=== PATIENT | female | born 1965 | race Caucasian/White ===

== ENCOUNTER 2019-07-25 13:12 | Inpatient (IN) ==
[2019-07-25] MEDS ORDERED: ONDANSETRON INJ 2 MG/ML 2 ML VIAL IV STA (13:33)
[2019-07-25] MEDS ORDERED: SODIUM CHLORIDE 0.9% 1000ML 1,000 ML IV ONE (13:33)
[2019-07-25] MEDS ORDERED: HYDROmorphone INJ 1 MG/ML SYRINGE IV STA (13:35)
[2019-07-25 13:53] LABS: Basophils # (auto) 0.03 K/uL (0-0.2); Basophils % (auto) 0.3 %; Eosinophils # (auto) 0.24 K/uL (0-0.5); Hematocrit (blood only) 39.1 % (37-47); Hemoglobin 14.1 g/dL (12.0-16.0); Immature Granulocytes # (auto) 0.02 K/uL (0.00-0.02); Immature Granulocytes % (auto) 0.2 %; Lymphocytes # (auto) 2.34 K/uL (1.2-3.4); Lymphocytes % (auto) 19.9 %; Mean Corpuscular Hgb Conc 36.1 g/dL (32-36); Mean Corpuscular Volume 98.5 fL (80-100); Mean Platelet Volume 9.8 fL (7.4-10.4); Monocytes % (auto) 7.7 %; Neutrophils # (auto) 8.23 K/uL (1.4-6.5); Neutrophils % (auto) 69.9 %; Platelet Count 195 K/uL (130-400); RDW Coefficient of Variation 11.9 % (11.5-14.5); RDW Standard Deviation 42.8 fL (36.4-46.3); Red Blood Count 3.97 M/uL (4.2-5.4); White Blood Count 11.76 K/uL (4.8-10.8)
[2019-07-25 14:01] LABS: Albumin Level 4.2 gm/dl (3.4-5.0); BUN Creatinine Ratio 10.8 (10-20); Calcium 10.3 mg/dl (8.5-10.1); Creatinine Clr Calc Pharmacy 69.3 ml/min; Est GFR (African American) 84.6; Potassium 3.6 mmol/L (3.5-5.1)
[2019-07-25 14:04] LABS: Bilirubin,Total 0.9 mg/dl (0.2-1); Globulin 4.2 gm/dl (2.5-4.0); Total Protein 8.4 gm/dl (6.4-8.2)
--- NOTE | 2019-07-25 14:32 | Emergency Department Note ---
Entered by Adina Solorzano acting as a scribe for Dhruv Balbuena MD History of Present Illness General Chief complaint: Abdominal Pain Stated complaint: ABDOMINAL PAIN, NAUSEA, BP 162-104,S/P HERNIA SURG Time Seen by Provider: 07/25/19 13:20 Source: patient Limitations: no limitations History of Present Illness Onset (ago): day(s) 1 Location: abdomen Pain Consistency: + constant and + other (worsening) Maximum Pain Intensity: 10 Quality: + other (worsening) Associated symptoms: + nausea/vomiting and + other (lower extremity swelling ); no chest pain and no fever/chills The patient is a 54 year old female who presents to the Emergency Room with complaints of constant post-surgical abdominal pain that worsened 1 day ago. She reports that she had a hernia mesh placement done 2 days ago, and she notes that the pain is over the incision site. The patient states that she was discharged a few hours after the surgery, noting that the pain was present at that time but she refused pain medication. The patient complains of nausea/vomiting and a bloated abdomen. She denies any fevers/chills, SOB, chest pain, and lower extremity swelling. The patient notes that she has not had a BM for at least the past 3 days. Home Medications Home Medications Medication Instructions Recorded Confirmed Type atorvastatin 20 mg tablet 20 mg PO QAM #90 tab 05/28/19 07/25/19 History hydroxyzine HCl 25 mg tablet 25 mg PO UD PRN #60 tab 05/28/19 07/25/19 History ipratropium 20 mcg-albuterol 100 1 puff INHALATION Q6H PRN gm 05/28/19 07/25/19 History mcg/actuation mist for inhalation lamotrigine 200 mg tablet 400 mg PO QAM tab 05/28/19 07/25/19 History trazodone 150 mg tablet 150 mg PO HS tab 05/28/19 07/25/19 History risperidone 4 mg tablet 4 mg PO HS 06/04/19 07/25/19 History fluticasone 100 mcg-salmeterol 50 1 puffs INH BID 07/01/19 07/25/19 History mcg/dose blistr powdr for inhalation lansoprazole 30 mg capsule,delayed 30 mg PO BID #180 cap 07/01/19 07/25/19 Rx release guaifenesin ER 1,200 mg tablet, 1,200 mg PO BID 07/07/19 07/25/19 History extended release 12 hr lactobacillus combination no.8 3 3,000 mmu cells PO QAM 07/07/19 07/25/19 History billion cell capsule multivitamin capsule 1 cap PO QAM 07/07/19 07/25/19 History sertraline 100 mg tablet 150 mg PO QAM tab 07/07/19 07/25/19 History acetaminophen-codeine 1 - 2 tab PO .every 4-6 hours PRN 07/23/19 07/25/19 Rx [Tylenol-Codeine #3] #30 tab Allergies Allergy/AdvReac Type Severity Reaction Status Date / Time fluconazole Allergy Severe hives Verified 07/25/19 14:44 diclofenac Allergy Patient Verified 07/25/19 14:44 denies buspirone AdvReac Mild loss of Verified 07/25/19 14:44 time fluoxetine AdvReac Mild loss of Verified 07/25/19 14:44 time morphine AdvReac Unknown N/V Verified 07/25/19 14:44 Past Med/Surg History Medical History Asthma stable Bipolar disorder COPD (chronic obstructive pulmonary disease) stable Degenerative disc disease Depression GERD (gastroesophageal reflux disease) controlled History of lung cancer s/p RUL lobectomy (2012) History of seizures Last seizure at age 18* Hyperlipidemia On home oxygen therapy 2L O2 HS (per patient, she states she was started on this after RUL lobectomy) Post traumatic stress disorder Pulmonary nodule Surgical History History of incisional hernia repair (07/23/19) Open Recurrent Incisional Hernia Repair with Mesh, Explant Portion of Prior Mesh, Enterolysis Dr. Black 07-23-19 History of D&C History of section X2 History of colonoscopy History of esophagogastroduodenoscopy (EGD) History of hysterectomy with unilateral oophorectomy History of incisional hernia repair History of lobectomy of lung RUL History of umbilical hernia repair X 2 Family History Mother Diabetes Hypertension Kidney disease Father Hypertension Cardiac disorder Myocardial infarction Brother Alcohol abuse Drug abuse Sister Breast cancer Ovarian cancer Depression Social History Preferred Language: Ugandan Communication Ability: Effective Visual Impairment: No Limitations Hearing Ability: Normal Brick Siding Applicator Required: No Beliefs That Will Affect Care: None marital status: Current Living Situation: Spouse current occupational status: unemployed Feels Safe at Home: Yes Smoking Status: Never smoker Tobacco Type: cigarettes ; Age Started Using Tobacco: 13 ; Age Quit Using Tobacco: 48 ; packs per day: 1 ; Second Hand Exposure: No ; Hx Alcohol Use: Yes Alcohol type: wine Alcohol Intake Frequency: Rarely Hx Substance Use: Yes substance use type: marijuana (inhalation daily; last use 07/10/19) Last Used Substance: Days (ago) Childhood Exposure to Second-Hand Smoke: Yes Dental Care, Regularly: No Physical Activity Frequency: 3-4 Times per Week Seatbelt Use: always Review of Systems See HPI for pertinent positives & negatives. and A total of 10 systems reviewed and were otherwise negative Physical Exam Vital Signs Vital Signs - 24 hr 07/25/19 13:14 07/25/19 13:48 Temperature 36.7 C Temperature Source Oral Sepsis Recent Fever Within 48 Hours No Sepsis New/Unexplained Change in Mental Status No Sepsis Action Taken by Nursing No Action Required Pulse Rate 129 H Respiratory Rate 20 Respiratory Effort / Characteristics Non-Labored Spontaneous Respiratory Depth Normal Blood Pressure 144/98 H Blood Pressure Mean 113 Pulse Oximetry 96 Oxygen Delivery Method Room Air GENERAL: Patient is in moderate distress from the pain. HEENT: No acute trauma, normocephalic atraumatic, mucous membranes moist, no nasal congestion, no scleral icterus. NECK: No stridor, no adenopathy, no meningismus, trachea is midline. LUNGS: Clear to auscultation bilaterally, no wheeze, no rhonchi, breath sounds equal. HEART: Tachycardic, regular rhythm. No murmurs. ABDOMEN: Fresh midline surgical incision. No drainage. Some surrounding erythema. Area is quite tender to touch. Abdomen is soft and bowel sounds are positive. Mild abdominal distention. EXTREMITIES: No cyanosis or edema, full range of motion of all the joints without pain or difficulty, no signs for acute trauma. NEUROLOGIC: Oriented x 3, no acute motor or sensory deficits, no focal weakness. SKIN: No rash, no jaundice, no diaphoresis. Course 1330: The patient was evaluated in room A03. A complete history and physical exam was performed. 1452: I spoke with Dr. Jo, general surgery, about the patients case. He will bring her into the hospital for symptom control and will consult the hospitalist. 1456: I updated the patient on the plan. Consultations Consultation #1: I spoke with Dr. Jo, general surgery, about the patients case. He will bring her into the hospital for symptom control and will consult the hospitalist. Time: 14:52 Administered Medications Hydromorphone HCl (Dilaudid) 1 mg IV Q15M PRN PRN Reason: Pain Stop: 08/08/19 14:38 Last Admin: 07/25/19 14:51 Dose: 1 mg Documented by: [id number] Ioversol (Optiray 320 100ml) 94 ml IV ONCE PRN PRN Reason: Interaction Checking Stop: 07/29/19 14:32 Last Admin: 07/25/19 14:33 Dose: 94 ml Documented by: [id number] Discontinued Medications Hydromorphone HCl (Dilaudid) 1 mg IV NOW STA Stop: 07/25/19 13:36 Last Admin: 07/25/19 13:47 Dose: 1 mg Documented by: [id number] Sodium Chloride (Nss 1000ml) 1,000 mls @ 999 mls/hr IV .Q1H1M ONE Stop: 07/25/19 14:33 Last Infusion: 07/25/19 14:31 Dose: 0 mls/hr Documented by: [id number] Admin: 07/25/19 13:30 Dose: 999 mls/hr Documented by: [id number] Piperacillin Sod/Tazobactam Sod (Zosyn) 4.5 gm in 120 mls @ 240 mls/hr IV NOW ONE Stop: 07/25/19 15:11 Last Admin: 07/25/19 14:51 Dose: 240 mls/hr Documented by: [id number] Ondansetron HCl (Zofran) 4 mg IV NOW STA Stop: 07/25/19 13:34 Last Admin: 07/25/19 13:47 Dose: 4 mg Documented by: [id number] Medical Decision Making Differential Diagnosis The differential diagnosis includes: Bowel obstruction, ileus, hematoma, bowel perforation, abscess, post-surgical pain, dehydration, constipation, pancreatitis, diverticulitis Medical Records Attestation: I reviewed the patient's medical records. Home Medications Current Medication List: was personally reviewed by hi Laboratory Data Attestation: I reviewed the patient's lab results. Result diagrams: 07/25/19 13:26 07/25/19 13:26 Lab Results 07/25/19 07/25/19 Range/Units 13:26 13:26 WBC 11.76 H (4.8-10.8) K/uL RBC 3.97 L (4.2-5.4) M/uL Hgb 14.1 (12.0-16.0) g/dL Hct 39.1 (37-47) % MCV 98.5 (80-100) fL MCH 35.5 H (25-34) pg MCHC 36.1 H (32-36) g/dL RDW Std Deviation 42.8 (36.4-46.3) fL RDW Coeff of Chelle 11.9 (11.5-14.5) % Plt Count 195 (130-400) K/uL MPV 9.8 (7.4-10.4) fL Immature Gran % (Auto) 0.2 % Neut % (Auto) 69.9 % Lymph % (Auto) 19.9 % [place] % (Auto) 7.7 % Eos % (Auto) 2.0 % Baso % (Auto) 0.3 % Immature Gran # (Auto) 0.02 (0.00-0.02) K/uL Neut # (Auto) 8.23 H (1.4-6.5) K/uL Lymph # (Auto) 2.34 (1.2-3.4) K/uL [place] # (Auto) 0.90 H (0.11-0.59) K/uL Eos # (Auto) 0.24 (0-0.5) K/uL Baso # (Auto) 0.03 (0-0.2) K/uL Sodium 138 (136-145) mmol/L Potassium 3.6 (3.5-5.1) mmol/L Chloride 99 (98-107) mmol/L Carbon Dioxide 31 (21-32) mmol/L Anion Gap 8.0 (3-11) BUN 10 (7-18) mg/dl Creatinine 0.90 (0.6-1.2) mg/dl Est Cr Clr Drug Dosing 69.3 ml/min Est GFR ( Amer) 84.6 Est GFR (Non-Af Amer) 73.0 BUN/Creatinine Ratio 10.8 (10-20) Glucose 169 H (70-99) mg/dl Calcium 10.3 H (8.5-10.1) mg/dl Total Bilirubin 0.9 (0.2-1) mg/dl AST 39 H (15-37) U/L ALT 42 (12-78) U/L Alkaline Phosphatase 104 (45-117) U/L Total Protein 8.4 H (6.4-8.2) gm/dl Albumin 4.2 (3.4-5.0) gm/dl Globulin 4.2 H (2.5-4.0) gm/dl Albumin/Globulin Ratio 1.0 (0.9-2) Lipase 188 (73-393) U/L Imaging Data Radiologist's Impression: Radiology results as stated below per my review and the radiologist's interpretation: CT abd pelvis IV con only CLINICAL HISTORY: Postoperative abdominal pain COMPARISON STUDY: September 2013 TECHNIQUE: The patient was scanned in a dynamic helical fashion during intravenous administration of 94 cc of Optiray 320. A dose lowering technique was utilized adhering to the principles of ALARA. CT DOSE: 543.01 mGy.cm FINDINGS: Lower chest: There are bilateral breast implants. There is mild subpleural reticulation particularly at the level of the right lung base. There is minimal enlargement in a 8.5 mm right lower lobe pulmonary nodule. The very slow growth favors a benign process Liver: The contrast-enhanced liver is normal in size, contour, and attenuation. There is no intrahepatic biliary ductal dilatation. The hepatic veins and portal veins are patent. Gallbladder: Mildly distended. No calculi identified Spleen: Normal in size and attenuation. Pancreas: Unremarkable. Adrenal glands: Unremarkable. Kidneys: There is a 12 mm left renal hypodensity, consistent with a cyst. There is a 1 cm right renal hypodensity consistent with a cyst. There is a 5 mm right renal hypodensity consistent with a cyst. There are no solid renal masses. There is no hydronephrosis. Bowel: There is a distended fluid-filled cecum which measures 8.8 cm in diameter. There are multiple colonic air-fluid levels. No obstructing lesions are visualized. The findings favor a postoperative colonic ileus. Peritoneum: There is no intraperitoneal free air or abdominal ascites. Vasculature: The abdominal aorta is normal in course and caliber. Adenopathy: None. Pelvic viscera: The uterus is surgically absent. Skeletal structures: There is a periumbilical anterior abdominal wall air-fluid collection, likely surgical. It is not possible to determine the stability of this collection. This collection measures approximately 7 x 1.6 x 5.1 cm IMPRESSION: 1. 7 x 5.1 x 1.6 cm periumbilical anterior abdominal wall fluid collection. This is likely postsurgical. It is not possible to determine whether this collection is infected. Clinical correlation in this regard is advocated 2. Distended fluid-filled colon to the level of the splenic flexure. No mass is visualized at the transition level. The findings therefore favor a post surgical ileus. The cecum measures 8.8 cm in diameter 3. Normal appendix Electronically signed by: Stalin Moncada M.D. 07/25/2019 2:45 PM ECG Data Attestation: I personally reviewed and interpreted this ECG as follows: Indication: abdominal pain Rate (beats per minute): 111 Rhythm: sinus tachycardia Findings: + other (no dysrhythmia ); no PVC, no ST elevation and no acute ischemic change Blood Pressure Blood Pressure Findings: Elevated blood pressure Blood Pressure Disposition: further management by hospitalist [facility] Narrative There is a mild leukocytosis, this could be consistent with infection or just pain. No anemia. No significant electrolyte abnormality or kidney failure. No liver enzyme elevation. No pancreatitis. Urinalysis result is currently pending. Abdominal and pelvis CT shows a collection of fluid with some air in the area of her recent surgical site-this was possibly consistent with a hematoma or possibly infection. There was a postop ileus suspected. No free air noted, no true bowel obstruction. On exam, the patient did look uncomfortable and somewhat bloated. She was tender across the area of her surgical site. Patient received IV Dilaudid for pain. She was given IV Zofran for nausea, she received IV saline and IV Zosyn as empiric antibiotic coverage. Patient does feel improved. Her case was discussed with surgery on-call. Hospitalization for symptom control was felt warranted. She does have a postop ileus. I did speak with case management. The patient is aware of all her findings. Impression & Plan Ileus, postoperative, Abdominal distension, Vomiting, Diffuse abdominal pain Discharge Plan Visit Data Chief Complaint: Abdominal Pain Stated Complaint: ABDOMINAL PAIN, NAUSEA, BP 162-104,S/P HERNIA SURG ED Provider: Dhruv Balbuena Discharge Problem: Ileus, postoperative, Abdominal distension, Vomiting, Diffuse abdominal pain Patient Disposition: Being Evaluated by Surgeon Forms Stand Alone Forms: Call Back Authorization, My [facility] Prescriptions Prescriptions: No Action lansoprazole 30 mg capsule,delayed release(DR/EC) 30 mg PO BID Qty: 180 RF: 1 Combivent Respimat 20-100 mcg/actuation mist 1 puff inhalation Q6H PRN (Reason: SOB) RF: 0 trazodone 150 mg tablet 150 mg PO HS RF: 0 lamotrigine 200 mg tablet 400 mg PO QAM RF: 0 atorvastatin 20 mg tablet 20 mg PO QAM Qty: 90 RF: 0 hydroxyzine HCl 25 mg tablet 25 mg PO UD PRN (Reason: Anxiety) Qty: 60 RF: 0 risperidone 4 mg tablet 4 mg PO HS RF: 0 sertraline 100 mg tablet 150 mg PO QAM RF: 0 fluticasone propion-salmeterol [Advair Diskus] 100-50 mcg/dose blister with device 1 puffs INH BID RF: 0 multivitamin capsule 1 cap PO QAM RF: 0 Adult Probiotic 3 billion cell capsule 3,000 mmu cells PO QAM RF: 0 guaifenesin [Mucinex] 1,200 mg tablet extended release 12hr 1,200 mg PO BID RF: 0 acetaminophen-codeine [Tylenol-Codeine #3] 300-30 mg tablet 1 - 2 tab PO .every 4-6 hours PRN (Reason: pain, for ongoing therapy) Qty: 30 RF: 0 Referrals Referrals: Meryl Dawkins MD [Primary Care Provider] - Discharge Problem: Vomiting Qualifiers: Vomiting type: unspecified Vomiting Intractability: unspecified Nausea presence: unspecified Qualified Code(s): R11.10 - Vomiting, unspecified The scribe's documentation has been prepared under my direction and personally reviewed by me in its entirety. I confirm that the note above accurately reflects all work, treatment, procedures, and medical decision making performed by me.
[2019-07-25] MEDS ORDERED: IOVERSOL 100ml IV PRN (14:33)
[2019-07-25] MEDS ORDERED: HYDROmorphone INJ 1 MG/ML SYRINGE IV PRN (14:39)
[2019-07-25] MEDS ORDERED: PIPERACILL/TAZOBAC CONSULT ACTIVE PRN (14:42)
[2019-07-25] MEDS ORDERED: PIPERACILLIN/TAZOBACTAM 4.5 GM/120 ML BAG IV ONE (14:42)
--- NOTE | 2019-07-25 14:46 | CT Scan Report ---
CT abd pelvis IV con only CLINICAL HISTORY: Postoperative abdominal pain COMPARISON STUDY: September 2013 TECHNIQUE: The patient was scanned in a dynamic helical fashion during intravenous administration of 94 cc of Optiray 320. A dose lowering technique was utilized adhering to the principles of ALARA. CT DOSE: 543.01 mGy.cm FINDINGS: Lower chest: There are bilateral breast implants. There is mild subpleural reticulation particularly at the level of the right lung base. There is minimal enlargement in a 8.5 mm right lower lobe pulmon sang nodule. The very slow growth favors a benign process Liver: The contrast-enhanced liver is normal in size, contour, and attenuation. There is no intrahepa tic biliary ductal dilatation. The hepatic veins and portal veins are patent. Gallbladder: Mildly distended. No calculi identified Spleen: Normal in size and attenuation. Pancreas: Unremarkable. Adrenal glands: Unremarkable. Kidneys: There is a 12 mm left renal hypodensity, consistent with a cyst. There is a 1 cm right renal hypodensity consistent with a cyst. There is a 5 mm right renal hypodensity consistent with a cyst. There are no solid renal masses. There is no hydronephrosis. Bowel: There is a distended fluid-filled cecum which measures 8.8 cm in diameter. There are multiple colonic air-fluid levels. No obstructing lesions are visualized. The findings favor a postoperative c olonic ileus. Peritoneum: There is no intraperitoneal free air or abdominal ascites. Vasculature: The abdominal aorta is normal in course and caliber. Adenopathy: None. Pelvic viscera: The uterus is surgically absent. Skeletal structures: There is a periumbilical anterior abdominal wall air-fluid collection, likely blackmon rgical. It is not possible to determine the stability of this collection. This collection measures ap proximately 7 x 1.6 x 5.1 cm IMPRESSION: 1. 7 x 5.1 x 1.6 cm periumbilical anterior abdominal wall fluid collection. This is likely postsurgic al. It is not possible to determine whether this collection is infected. Clinical correlation in this regard is advocated 2. Distended fluid-filled colon to the level of the splenic flexure. No mass is visualized at the tra nsition level. The findings therefore favor a post surgical ileus. The cecum measures 8.[address] 3. Normal appendix Electronically signed by: Stalin Moncada M.D. 07/25/2019 2:45 PM
--- NOTE | 2019-07-25 16:00 | History & Physical Report ---
Date of Service July 25, 2019 Assessment & Plan (1) Ileus, postoperative: It appears she has a postoperative ileus We will admit her to the hospital for bowel rest and IV fluid Have discussed with her the possibility of an NG tube which may help We will continue supportive care and I will ask the medical team To help us with her care History of Present Illness Primary Care Provider: Meryl Dawkins MD Patient presents the emergency room with nausea vomiting abdominal pain History of recent incisional hernia repair on 07/23/2019 with no bowel movement since that time She had a CAT scan which showed some mildly dilated small bowel and colon cecum is somewhat distended At 8 cm significant stool Her white blood cell count is 11.7, electrolytes relatively normal Allergies Allergy/AdvReac Type Severity Reaction Status Date / Time fluconazole Allergy Severe hives Verified 07/25/19 14:44 diclofenac Allergy Patient Verified 07/25/19 14:44 denies buspirone AdvReac Mild loss of Verified 07/25/19 14:44 time fluoxetine AdvReac Mild loss of Verified 07/25/19 14:44 time morphine AdvReac Unknown N/V Verified 07/25/19 14:44 Home Medications Home Medications Medication Instructions Recorded Confirmed Type atorvastatin 20 mg tablet 20 mg PO QAM #90 tab 05/28/19 07/25/19 History hydroxyzine HCl 25 mg tablet 25 mg PO UD PRN #60 tab 05/28/19 07/25/19 History ipratropium 20 mcg-albuterol 100 1 puff INHALATION Q6H PRN gm 05/28/19 07/25/19 History mcg/actuation mist for inhalation lamotrigine 200 mg tablet 400 mg PO QAM tab 05/28/19 07/25/19 History trazodone 150 mg tablet 150 mg PO HS tab 05/28/19 07/25/19 History risperidone 4 mg tablet 4 mg PO HS 06/04/19 07/25/19 History fluticasone 100 mcg-salmeterol 50 1 puffs INH BID 07/01/19 07/25/19 History mcg/dose blistr powdr for inhalation lansoprazole 30 mg capsule,delayed 30 mg PO BID #180 cap 07/01/19 07/25/19 Rx release guaifenesin ER 1,200 mg tablet, 1,200 mg PO BID 07/07/19 07/25/19 History extended release 12 hr lactobacillus combination no.8 3 3,000 mmu cells PO QAM 07/07/19 07/25/19 History billion cell capsule multivitamin capsule 1 cap PO QAM 07/07/19 07/25/19 History sertraline 100 mg tablet 150 mg PO QAM tab 07/07/19 07/25/19 History acetaminophen-codeine 1 - 2 tab PO .every 4-6 hours PRN 07/23/19 07/25/19 Rx [Tylenol-Codeine #3] #30 tab Past Med/Surg History Medical History Asthma stable Bipolar disorder COPD (chronic obstructive pulmonary disease) stable Degenerative disc disease Depression GERD (gastroesophageal reflux disease) controlled History of lung cancer s/p RUL lobectomy (2012) History of seizures Last seizure at age 18* Hyperlipidemia On home oxygen therapy 2L O2 HS (per patient, she states she was started on this after RUL lobectomy) Post traumatic stress disorder Pulmonary nodule Surgical History History of incisional hernia repair (07/23/19) Open Recurrent Incisional Hernia Repair with Mesh, Explant Portion of Prior Mesh, Enterolysis Dr. Black 07-23-19 History of D&C History of section X2 History of colonoscopy History of esophagogastroduodenoscopy (EGD) History of hysterectomy with unilateral oophorectomy History of incisional hernia repair History of lobectomy of lung RUL History of umbilical hernia repair X 2 Family History Mother Diabetes Hypertension Kidney disease Father Hypertension Cardiac disorder Myocardial infarction Brother Alcohol abuse Drug abuse Sister Breast cancer Ovarian cancer Depression Social History Preferred Language: Italian Communication Ability: Effective Visual Impairment: No Limitations Hearing Ability: Normal Self Sealing Fuel Tank Repairer Required: No Beliefs That Will Affect Care: None marital status: Current Living Situation: Spouse current occupational status: unemployed Feels Safe at Home: Yes Smoking Status: Never smoker Tobacco Type: cigarettes ; Age Started Using Tobacco: 13 ; Age Quit Using Tobacco: 48 ; packs per day: 1 ; Second Hand Exposure: No ; Hx Alcohol Use: Yes Alcohol type: wine Alcohol Intake Frequency: Rarely Hx Substance Use: Yes substance use type: marijuana (inhalation daily; last use 07/10/19) Last Used Substance: Days (ago) Childhood Exposure to Second-Hand Smoke: Yes Dental Care, Regularly: No Physical Activity Frequency: 3-4 Times per Week Seatbelt Use: always Review of Systems Review of Systems: All systems reviewed & are unremarkable except as noted in HPI & below Physical Exam Physical Exam: She is in her hospital bed in no distress he does appear ill Her mucous membranes are dry Her abdomen is mildly distended and some tenderness to palpation She has diminished bowel sounds Constitutional: well developed and well nourished; no acute distress Eyes: + anicteric sclerae Respiratory: normal respiratory effort; no respiratory distress Cardiovascular: Rate/Rhythm: regular rate Skin: no rashes, warm and dry Neurologic: awake Psychiatric: Orientation: alert Results & Data Vital Signs (Past 12 Hours) Vital Signs Temp Pulse Resp BP Pulse Ox 07/25/19 15:45 108 H 14 120/83 97 07/25/19 15:40 105 H 22 97 07/25/19 15:31 100 H 15 121/89 96 07/25/19 15:30 104 H 16 96 07/25/19 15:20 101 H 17 97 07/25/19 15:10 100 H 15 98 I did review her CAT scan 07/25/19 15:01 93 H 20 141/92 H 96 07/25/19 15:00 96 H 14 96 07/25/19 14:50 103 H 22 93 07/25/19 14:40 105 H 20 93 07/25/19 14:38 102 H 18 92 07/25/19 14:20 98 H 15 91 07/25/19 14:10 95 H 17 92 07/25/19 14:01 101 H 18 117/87 93 07/25/19 14:00 102 H 13 93 07/25/19 13:54 111 H 21 91 07/25/19 13:51 115 H 17 140/91 93 07/25/19 13:14 36.7 C 129 H 20 144/98 H 96 I did review her CAT scan Code Status & VTE Plan VTE Prophylaxis Plan VTE Prophylaxis will be ordered: Yes PG Care Time/CCT Total # of Minutes Spent Total Time Spent with Patient: Total time spent is greater than 50% in coordination of care (as documented) at patient's floor/unit and/or counseling patient:
[2019-07-25] MEDS ORDERED: ACETAMINOPHEN 1,000 MG/100 ML VIAL IV PRN (16:46)
[2019-07-25] MEDS ORDERED: PROMETHAZINE HCL 12.5 MG in SODIUM CHLORIDE 0.9% 50 ML IV PRN (16:46)
[2019-07-25] MEDS: HYDROmorphone INJ 1 MG/ML SYRINGE IV PRN ×3 (17:10→23:03)
[2019-07-25 17:15] LABS: Magnesium 1.8 mg/dl (1.8-2.4); Phosphorus 3.4 mg/dl (2.5-4.9)
[2019-07-25] MEDS: D5NSS + 20MEQ KCL 20 MEQ/1,000 ML BAG IV SCH (17:15)
--- NOTE | 2019-07-25 17:25 | Consultation ---
Date of Consultation July 25, 2019 Assessment & Plan (1) HTN, goal below 140/90: Keep blood pressure below 140/90 Your blood pressure is elevated above 160/90 give hydralazine 10 mg p.o. every 6 hours as needed Continue n.p.o. Dr. Jo said he is going to put NG tube Pain management Follow daily CBC CMP lipid panel A1c EKG pending Continue gentle IV fluid hydration DVT prophylaxis as per primary team/SCDs and teds since patient postsurgical Present on Admission?: Yes (2) Mixed hyperlipidemia: Lipid panel pending Continue atorvastatin 20 mg p.o. nightly (3) GERD without esophagitis: Continue lansoprazole 30 mg p.o. twice daily or equivalent Present on Admission?: Yes (4) COPD (chronic obstructive pulmonary disease): Continue supplemental oxygen at night/2 L since patient chronic chronically uses at home Keep oxygenation above 92% Continue her home inhalers ipratropium 20 MCG/albuterol 101 puff every 6 hours as needed Continue guaifenesin 1200 mg tablet extended release p.o. twice daily for cough Continue fluticasone 100 MCG/Solu-Medrol 50 MCG's for inhalation 1 puff twice daily Continue Tylenol 3 with codeine every 6 hours for pain management. Monitor ingestion of Tylenol and hold more than 2 g given during the day. (5) Anxiety: For depression with anxiety and bipolar affective disorder: Continue home dose of sertraline 150 mg tablet Continue trazodone 150 mg tablets p.o. nightly Continue risperidone 4 mg tablet p.o. nightly Continue lamotrigine 400 mg p.o. every morning Present on Admission?: Yes (6) Ileus, postoperative: As per primary team Present on Admission?: Yes History of Present Illness Requesting Physician: Dr. Erasmo Jo general surgery Reason for Consultation: Chronic COPD, hyperlipidemia, and hypertension Attending Physician: Jason Black, History of Present Illness Patient is a 54 years old female with past medical history of ventral hernia, mixed hyperlipidemia, hypertension, GERD, depression with anxiety, COPD who presents to the emergency room with a complaint of constant postsurgical abdominal pain that worsened 1 day ago. She reports that she had hernia mesh placement done 2 days ago and she noticed that pain is over the incision site. Patient states that even though she had pain after the surgery she refused to take pain medication. At this time she is complaining of nausea vomiting and distended abdomen. Patient denies fever chills chest pain shortness of breath frequency urgency melena dysuria hematuria. We are consulted for management patient's other comorbidities. Patient uses 2 L of oxygen at night. Patient is a cancer survivor and she had a lobectomy of her left lung. Patient also states that she did not have bowel movement for [address] of the abdomen pelvis is reviewed and showed mildly dilated small bowel and colon cecum is somewhat distended. There is 7 x 5.1 x 1.6 cm periumbilical anterior abdominal wall fluid collection. This is postsurgical. Distended fluid-filled colon to the level of the splenic flexure. No mass is visualized at the transitional level. The findings therefore favor postsurgical ileus. The cecum measures 8.8 cm in diameter. Normal appendix. Labs are reviewed: White blood cell count 11.76 hematocrit 39.1 hemoglobin 14.1 platelets 195. Sodium 138 potassium 3.8 chloride 99 anion gap 8 BUN 10 creatinine 0.9 GFR 73 glucose 169 calcium 10.3 AST 39 ALT 42 alkaline phosphatase 104 total protein 8.4 lipase 188. Allergies Allergy/AdvReac Type Severity Reaction Status Date / Time fluconazole Allergy Severe hives Verified 07/25/19 14:44 diclofenac Allergy Patient Verified 07/25/19 14:44 denies buspirone AdvReac Mild loss of Verified 07/25/19 14:44 time fluoxetine AdvReac Mild loss of Verified 07/25/19 14:44 time morphine AdvReac Unknown N/V Verified 07/25/19 14:44 Home Medications Home Medications Medication Instructions Recorded Confirmed Type atorvastatin 20 mg tablet 20 mg PO QAM #90 tab 05/28/19 07/25/19 History hydroxyzine HCl 25 mg tablet 25 mg PO UD PRN #60 tab 05/28/19 07/25/19 History ipratropium 20 mcg-albuterol 100 1 puff INHALATION Q6H PRN gm 05/28/19 07/25/19 History mcg/actuation mist for inhalation lamotrigine 200 mg tablet 400 mg PO QAM tab 05/28/19 07/25/19 History trazodone 150 mg tablet 150 mg PO HS tab 05/28/19 07/25/19 History risperidone 4 mg tablet 4 mg PO HS 06/04/19 07/25/19 History fluticasone 100 mcg-salmeterol 50 1 puffs INH BID 07/01/19 07/25/19 History mcg/dose blistr powdr for inhalation lansoprazole 30 mg capsule,delayed 30 mg PO BID #180 cap 07/01/19 07/25/19 Rx release guaifenesin ER 1,200 mg tablet, 1,200 mg PO BID 07/07/19 07/25/19 History extended release 12 hr lactobacillus combination no.8 3 3,000 mmu cells PO QAM 07/07/19 07/25/19 History billion cell capsule multivitamin capsule 1 cap PO QAM 07/07/19 07/25/19 History sertraline 100 mg tablet 150 mg PO QAM tab 07/07/19 07/25/19 History acetaminophen-codeine 1 - 2 tab PO .every 4-6 hours PRN 07/23/19 07/25/19 Rx [Tylenol-Codeine #3] #30 tab Patient History Medical History Asthma stable Bipolar disorder COPD (chronic obstructive pulmonary disease) stable Degenerative disc disease Depression GERD (gastroesophageal reflux disease) controlled History of lung cancer s/p RUL lobectomy (2012) History of seizures Last seizure at age 18* Hyperlipidemia On home oxygen therapy 2L O2 HS (per patient, she states she was started on this after RUL lobectomy) Post traumatic stress disorder Pulmonary nodule Surgical History History of incisional hernia repair (07/23/19) Open Recurrent Incisional Hernia Repair with Mesh, Explant Portion of Prior Mesh, Enterolysis Dr. Black 07-23-19 History of D&C History of section X2 History of colonoscopy History of esophagogastroduodenoscopy (EGD) History of hysterectomy with unilateral oophorectomy History of incisional hernia repair History of lobectomy of lung RUL History of umbilical hernia repair X 2 Family History Mother Diabetes Hypertension Kidney disease Father Hypertension Cardiac disorder Myocardial infarction Brother Alcohol abuse Drug abuse Sister Breast cancer Ovarian cancer Depression Social History Preferred Language: Danish Communication Ability: Effective Visual Impairment: No Limitations Hearing Ability: Normal [employer] Transactions Attorney Required: No Beliefs That Will Affect Care: None marital status: Current Living Situation: Spouse Current Living Situation Comment: spouse current occupational status: unemployed Feels Safe at Home: Yes Safety Concerns: Feels Safe At This Time Smoking Status: Former smoker Tobacco Type: cigarettes ; Age Started Using Tobacco: 13 ; Age Quit Using Tobacco: 48 ; packs per day: 1 ; Second Hand Exposure: No ; Hx Alcohol Use: Yes Alcohol type: hard liquor Alcohol Intake Frequency: Rarely Hx Substance Use: Yes substance use type: marijuana Last Used Substance: Days (ago) Last Used Substance Other:: 07-15-19 Childhood Exposure to Second-Hand Smoke: Yes Dental Care, Regularly: No Physical Activity Frequency: 3-4 Times per Week Seatbelt Use: always Review of Systems Review of Systems: All systems reviewed & are unremarkable except as noted in HPI & below Physical Exam Constitutional: WD/WN, vitals as above well developed Eyes: PERRL, conjunctivae normal, anicteric sclerae ENMT: external ear and nose normal, oropharynx normal Neck: trachea midline, no thyromegaly Respiratory: Auscultation: + diminished lung sounds (on the left) Cardiovascular: RRR, no murmur, no edema Chest (Breasts): normal inspection/palpation of breasts Gastrointestinal (Abdomen): normal bowel sounds, soft, nontender, no hepatosplenomegaly Inspection/Auscultation: + abdomen distended Percussion/Palpation: + abdomen tender and + guarding Bowel sounds diminished in all 4 quadrants Musculoskeletal: no cyanosis or clubbing, extremities motor strength 5/5 Skin: no rashes, warm and dry Neurologic: patellar DTR's 2+ bilat, sensation intact Psychiatric: A+Ox3, euthymic affect Lymphatic: no cervical or axillary lymphadenopathy Results & Data Vital Signs (Past 12 Hours) Vital Signs Temp Pulse Resp BP Pulse Ox 07/25/19 15:45 108 H 14 120/83 97 07/25/19 15:40 105 H 22 97 07/25/19 15:31 100 H 15 121/89 96 07/25/19 15:30 104 H 16 96 07/25/19 15:20 101 H 17 97 07/25/19 15:10 100 H 15 98 07/25/19 15:01 93 H 20 141/92 H 96 07/25/19 15:00 96 H 14 96 07/25/19 14:50 103 H 22 93 07/25/19 14:40 105 H 20 93 07/25/19 14:38 102 H 18 92 07/25/19 14:20 98 H 15 91 07/25/19 14:10 95 H 17 92 07/25/19 14:01 101 H 18 117/87 93 07/25/19 14:00 102 H 13 93 07/25/19 13:54 111 H 21 91 07/25/19 13:51 115 H 17 140/91 93 07/25/19 13:14 36.7 C 129 H 20 144/98 H 96 PG Care Time/CCT Total # of Minutes Spent Total Time Spent with Patient: Total time spent is greater than 50% in coordination of care (as documented) at patient's floor/unit and/or counseling patient:
[2019-07-25 17:53] LABS: Appearance Urine Turbid (Clear); Bacteria Urine Automated Negative (Negative); Bilirubin Urine Negative (Negative); Blood Urine Negative (Negative); Cast Urine Automated 0 /lpf (0-5); Color Urine Yellow; Glucose Urine UA Negative (Negative); Ketones Urine 1+ (Negative); Leukocyte Esterase Urine Negative (Negative); Nitrite Urine Negative (Negative); Protein Urine Negative (Negative); RBC Urine Automated 0-4 /hpf (0-4); Specific Gravity Urine > 1.045 (1.000-1.030); Urobilinogen Urine Negative (Negative); pH Urine 8.5 (4.5-7.5)
[2019-07-25] MEDS ORDERED: HydrALAZINE 10 MG TAB PO PRN (17:59)
[2019-07-25 18:35] LABS: Chol HDL Ratio 4; Cholesterol 217 mg/dl (0-200); HDL Cholesterol 55 mg/dl; LDL Cholesterol Calculated 114 mg/dl; Triglycerides 241 mg/dl (0-150); VLDL Cholesterol 48 mg/dl
[2019-07-25] MEDS: FLUTICASONE/SALMETEROL 100/50 (ADVAIR) 14 PUFF/1 INHALER INH SCH (20:53)
[2019-07-25] MEDS: HEPARIN SOD 5,000 UNIT/0.5 ML VIAL SQ SCH (20:53)
[2019-07-25] MEDS: TRAZODONE HCL 50 MG TAB PO SCH (20:53)
[2019-07-25] MEDS: IPRATROPIUM BROMIDE/ALBUTEROL respimat INH INH PRN (22:55)
[2019-07-25] MEDS: risperiDONE 2 MG TABLET PO SCH (22:55)
[2019-07-25] MEDS: CEFAZOLIN 1000MG 1,000 MG/7.5 ML SYR IV SCH (22:55)
[2019-07-25] MEDS: ONDANSETRON INJ 2 MG/ML 2 ML VIAL IV PRN (23:03)
[2019-07-26] MEDS: D5NSS + 20MEQ KCL 20 MEQ/1,000 ML BAG IV SCH ×3 (00:56→19:16)
[2019-07-26] MEDS: PROMETHAZINE HCL 25 MG in SODIUM CHLORIDE 0.9% 50 ML IV PRN (00:56)
[2019-07-26 06:10] LABS: Basophils # (auto) 0.01 K/uL (0-0.2); Basophils % (auto) 0.2 %; Eosinophils # (auto) 0.07 K/uL (0-0.5); Eosinophils % (auto) 1.1 %; Hematocrit (blood only) 35.3 % (37-47); Hemoglobin 11.9 g/dL (12.0-16.0); Immature Granulocytes # (auto) 0.01 K/uL (0.00-0.02); Immature Granulocytes % (auto) 0.2 %; Lymphocytes # (auto) 1.04 K/uL (1.2-3.4); Mean Corpuscular Hgb Conc 33.7 g/dL (32-36); Mean Corpuscular Volume 101.7 fL (80-100); Mean Platelet Volume 9.4 fL (7.4-10.4); Monocytes # (auto) 0.48 K/uL (0.11-0.59); Monocytes % (auto) 7.4 %; Neutrophils # (auto) 4.87 K/uL (1.4-6.5); Neutrophils % (auto) 75.1 %; Platelet Count 158 K/uL (130-400); RDW Coefficient of Variation 11.9 % (11.5-14.5); RDW Standard Deviation 43.9 fL (36.4-46.3); Red Blood Count 3.47 M/uL (4.2-5.4); White Blood Count 6.48 K/uL (4.8-10.8)
[2019-07-26] MEDS: CEFAZOLIN 1000MG 1,000 MG/7.5 ML SYR IV SCH ×3 (06:11→22:31)
[2019-07-26] MEDS: ONDANSETRON INJ 2 MG/ML 2 ML VIAL IV PRN ×3 (06:11→19:56)
[2019-07-26] MEDS ORDERED: MINERAL OIL 30 ML UDC PO ONE (06:47)
[2019-07-26 06:49] LABS: Albumin Level 3.4 gm/dl (3.4-5.0); BUN Creatinine Ratio 10.4 (10-20); Bilirubin,Total 0.4 mg/dl (0.2-1); Calcium 8.4 mg/dl (8.5-10.1); Creatinine Clr Calc Pharmacy 87.8 ml/min; Est GFR (African American) 112.7; Est GFR (Non-African American) 97.2; Globulin 3.5 gm/dl (2.5-4.0); Phosphorus 2.5 mg/dl (2.5-4.9); Total Protein 6.9 gm/dl (6.4-8.2)
--- NOTE | 2019-07-26 06:53 | Surgery Progress Note ---
Date of Service July 26, 2019 Assessment & Plan (1) Ileus, postoperative: has pain- slept overnight NG output looks like ice/water, and normal gastric secretions abd- decreased bs, less distended check KUB, add some mineral oil via NG and clamp may consider some Miralax if improved bs Results & Data Vital Signs (Past 12 Hours) Vital Signs Temp Pulse Resp BP Pulse Ox 07/26/19 01:44 96 H 07/26/19 00:00 36.9 C 117 H 16 151/83 H 96 PG Care Time/CCT Total # of Minutes Spent Total Time Spent with Patient: Total time spent is greater than 50% in coordination of care (as documented) at patient's floor/unit and/or counseling patient:
[2019-07-26] MEDS ORDERED: MINERAL OIL 473 ML BOTTLE PO ONE (07:00)
[2019-07-26] MEDS: FLUTICASONE/SALMETEROL 100/50 (ADVAIR) 14 PUFF/1 INHALER INH SCH ×2 (07:45→21:04)
[2019-07-26] MEDS: SERTRALINE HCL 100 MG TABLET PO SCH (07:45)
[2019-07-26] MEDS: PANTOprazole 40 MG TAB PO SCH (07:58)
[2019-07-26] MEDS: HYDROmorphone INJ 1 MG/ML SYRINGE IV PRN ×4 (08:00→19:56)
--- NOTE | 2019-07-26 09:05 | XRay Report ---
PA CHEST WITH ABDOMINAL SERIES CLINICAL HISTORY: Follow-up small bowel obstruction. FINDINGS: A PA chest radiograph is compared to study dated 09/25/2015 and correlated with chest CT dated 09/26/20 15. The cardiomediastinal silhouette is unremarkable. Emphysema and chronic interstitial thickening a re similar to previous. Postoperative change, volume loss, and trace pleural fluid is again seen at t he right lung base. The lungs are otherwise clear. No pneumothorax is seen. The skeletal structures a re osteopenic. The bony thorax is grossly intact. Supine and erect abdominal radiographs are correlated with abdominal CT dated 07/25/2019. An enteric tu be has been placed. The tip projects below the diaphragm over the gastric fundus. There is no radiogr aphic evidence of high-grade bowel obstruction. Gas is noted throughout the colon. Scattered air-flui d levels are noted on the upright view. No evidence of intraperitoneal free air is seen. There are no abnormal abdominal calcifications. The lumbosacral spine and bony pelvis appear intact. IMPRESSION: 1. Emphysema and postoperative change at the right lung base are similar to previous. 2. Trace pleural fluid is again seen in the right lung base. The lungs are otherwise clear. 3. An enteric tube has been placed as detailed above. 4. There is no radiographic evidence of high-grade bowel obstruction, with gas seen throughout the co miles. Scattered air-fluid levels are noted. When correlated with yesterday's CT scan this favors a pos toperative ileus. Electronically signed by: Dhruv Brown M.D. 07/26/2019 9:03 AM
[2019-07-26] MEDS: lamoTRIgine 100 MG TAB PO SCH (09:08)
[2019-07-26] MEDS: ATORVASTATIN 20 MG TAB PO SCH (09:08)
[2019-07-26] MEDS: guaiFENesin 600 MG TABCR PO SCH ×2 (09:09→21:06)
[2019-07-26] MEDS: HEPARIN SOD 5,000 UNIT/0.5 ML VIAL SQ SCH ×2 (09:11→22:36)
--- NOTE | 2019-07-26 10:36 | Hospitalist Progress Note ---
Date of Service July 26, 2019 Assessment & Plan (1) HTN, goal below 140/90: hydralazine 10 mg p.o. every 6 hours as needed for BP > 180/100 Continue n.p.o. NG per Dr. Jo Pain management Follow daily CBC CMP lipid panel A1c EKG pending Continue gentle IV fluid hydration DVT prophylaxis as per primary team/SCDs and teds since patient postsurgical (2) Mixed hyperlipidemia: Lipid panel pending Continue atorvastatin 20 mg p.o. nightly (3) GERD without esophagitis: Continue lansoprazole 30 mg p.o. twice daily or equivalent (4) COPD (chronic obstructive pulmonary disease): Continue supplemental oxygen at night/2 L since patient chronic chronically uses at home Keep oxygenation above 92% Continue her home inhalers ipratropium 20 MCG/albuterol 101 puff every 6 hours as needed Continue guaifenesin 1200 mg tablet extended release p.o. twice daily for cough Continue fluticasone 100 MCG/Solu-Medrol 50 MCG's for inhalation 1 puff twice daily Continue Tylenol 3 with codeine every 6 hours for pain management. (5) Anxiety: For depression with anxiety and bipolar affective disorder: Continue home dose of sertraline 150 mg tablet Continue trazodone 150 mg tablets p.o. nightly Continue risperidone 4 mg tablet p.o. nightly Continue lamotrigine 400 mg p.o. every morning (6) Ileus, postoperative: As per primary team (7) DVT prophylaxis: per primary Subjective Ms. Ribera continues to have abdominal pain. No nausea, tolerating NG tube. Not passing gas since yesterday, no BM. Review of Systems Review of Systems: All systems reviewed & are unremarkable except as noted in HPI & below Physical Exam Physical Exam: General: no distress Eyes: normal inspection, PERLL Respiratory: chest non tender, clear to auscultation, normal breath sounds, no respiratory distress, no accessory muscle use Cardiac: regular rate and rhythm, no rub or gallop, no murmur, no edema, no jvd GI/: active bowel sounds, no abd pain or tenderness, soft, distended Extremities: normal range of motion, normal strength, non tender Neuro/Psych: alert and oriented x 3, normal mood and affect Skin: normal color, dry, abd incision well approximated Results & Data Vital Signs (Past 12 Hours) Vital Signs Temp Pulse Resp BP Pulse Ox 07/26/19 07:34 37.4 C 93 H 16 147/80 H 94 07/26/19 01:44 96 H 07/26/19 00:00 36.9 C 117 H 16 151/83 H 96 PG Care Time/CCT Total # of Minutes Spent Total Time Spent with Patient: Total time spent is greater than 50% in coordination of care (as documented) at patient's floor/unit and/or counseling patient:
[2019-07-26] MEDS: IPRATROPIUM BROMIDE/ALBUTEROL respimat INH INH PRN (21:04)
[2019-07-26] MEDS: TRAZODONE HCL 50 MG TAB PO SCH (21:05)
[2019-07-26] MEDS: risperiDONE 2 MG TABLET PO SCH (21:07)
[2019-07-27] MEDS: HYDROmorphone INJ 1 MG/ML SYRINGE IV PRN ×4 (01:58→21:00)
[2019-07-27] MEDS: CEFAZOLIN 1000MG 1,000 MG/7.5 ML SYR IV SCH ×3 (05:31→22:02)
[2019-07-27] MEDS: D5NSS + 20MEQ KCL 20 MEQ/1,000 ML BAG IV SCH ×2 (05:31→15:17)
[2019-07-27] MEDS ORDERED: MINERAL OIL 30 ML UDC PO ONE ×2 (05:37→06:15)
[2019-07-27] MEDS ORDERED: SENNA 8.8 MG/5 ML UDP PO PRN (05:37)
[2019-07-27 06:06] LABS: Estimated Average Glucose 105 mg/dl; Hemoglobin A1C 5.3 % (4.5-5.6)
[2019-07-27 06:08] LABS: Albumin Level 3.3 gm/dl (3.4-5.0); BUN Creatinine Ratio 8.4 (10-20); Calcium 8.6 mg/dl (8.5-10.1); Creatinine Clr Calc Pharmacy 97.4 ml/min; Est GFR (African American) 118.1; Est GFR (Non-African American) 101.9; Magnesium 1.8 mg/dl (1.8-2.4); Potassium 3.9 mmol/L (3.5-5.1)
[2019-07-27 06:13] LABS: Bilirubin,Total 0.6 mg/dl (0.2-1); Globulin 3.4 gm/dl (2.5-4.0); Phosphorus 2.5 mg/dl (2.5-4.9); Total Protein 6.7 gm/dl (6.4-8.2)
[2019-07-27] MEDS ORDERED: MINERAL OIL 30 ML UDC NG ONE ×2 (06:15)
[2019-07-27] MEDS ORDERED: SENNA 8.8 MG/5 ML UDP NG PRN (06:15)
[2019-07-27] MEDS: lamoTRIgine 100 MG TAB PO SCH (08:53)
[2019-07-27] MEDS: SERTRALINE HCL 100 MG TABLET PO SCH (08:53)
[2019-07-27] MEDS: FLUTICASONE/SALMETEROL 100/50 (ADVAIR) 14 PUFF/1 INHALER INH SCH ×2 (08:53→21:00)
[2019-07-27] MEDS: ATORVASTATIN 20 MG TAB PO SCH (08:54)
[2019-07-27] MEDS: PANTOprazole 40 MG TAB PO SCH (08:54)
[2019-07-27] MEDS: guaiFENesin 600 MG TABCR PO SCH ×2 (08:54→21:00)
[2019-07-27] MEDS: HEPARIN SOD 5,000 UNIT/0.5 ML VIAL SQ SCH ×2 (08:54→21:04)
[2019-07-27 09:32] LABS: Hematocrit (blood only) 34.4 % (37-47); Hemoglobin 11.8 g/dL (12.0-16.0); Mean Corpuscular Hgb Conc 34.3 g/dL (32-36); Mean Platelet Volume 9.3 fL (7.4-10.4); Platelet Count 178 K/uL (130-400); RDW Coefficient of Variation 11.8 % (11.5-14.5); RDW Standard Deviation 42.3 fL (36.4-46.3); Red Blood Count 3.44 M/uL (4.2-5.4); White Blood Count 8.96 K/uL (4.8-10.8)
[2019-07-27] MEDS: ONDANSETRON INJ 2 MG/ML 2 ML VIAL IV PRN ×3 (09:53→20:03)
--- NOTE | 2019-07-27 12:34 | Surgery Progress Note ---
Date of Service July 27, 2019 Assessment & Plan (1) Ileus, postoperative: less NG output +flatus clamp NG, sips/ popsicles in am CT w/ contrast via NG- possible d/c Wed depending on progress Results & Data Vital Signs (Past 12 Hours) Vital Signs Temp Pulse Resp BP Pulse Ox 07/27/19 07:41 36.8 C 89 17 157/77 H 95 PG Care Time/CCT Total # of Minutes Spent Total Time Spent with Patient: Total time spent is greater than 50% in coordination of care (as documented) at patient's floor/unit and/or counseling patient:
--- NOTE | 2019-07-27 14:50 | Hospitalist Progress Note ---
Date of Service July 27, 2019 Assessment & Plan (1) Recurrent ventral hernia: - S/p repair on 07/23/19; primary management per surgery team. (2) Ileus, postoperative: - Most recent KUB on 07/26 showed post op ileus. Plan for CT A/P in the morning. - Management per primary team. Continue NG tube care. - NPO except meds; IV fluids at 100 cc/hr. (3) HTN, goal below 140/90: - Continue Hydralazine prn. Not on anti-hypertensive at home. - BP has been elevated, 140-150's. (4) Anxiety: - H/o depression,anxiety and bipolar affective disorder. - Continue Sertraline, Trazodone, Risperdal, Lamictal as prescribed. (5) Mixed hyperlipidemia: - Lipid panel showed elevated triglycerides and cholesterol. - Continue statin as prescribed. (6) GERD without esophagitis: - PPI. (7) COPD (chronic obstructive pulmonary disease): - Chronically uses 2L qhs at home; has been requiring 2L throughout the day as inpatient. - Continue Mucinex, Flonase, Advair. (8) DVT prophylaxis: - Heparin q12hr. Dispo: Will continue to follow, please call with any questions. Supervising Physician Co-Signing Physician Notes PA Supervision Note: I did not personally see or examine the patient today, but I verified all beltre points of GOLD Padron's assessment and plan with the following exceptions/additions: None Subjective Pt. is passing gas, has not had a BM yet. Has nausea, denies vomiting. NG tube in place with LIS. Will continue to follow. Review of Systems Review of Systems: All systems reviewed & are unremarkable except as noted in HPI & below Constitutional: no fever, no chills, no fatigue, no weakness and no anorexia Respiratory: no cough, no dyspnea and no dyspnea on exertion Cardiovascular: no chest pain, no palpitations and no edema Gastrointestinal: + nausea and + constipation; no abdominal pain, no vomiting and no diarrhea/loose stools Genitourinary: no difficulty urinating Musculoskeletal: no back pain and no joint pain Integumentary: no non-healing lesions Physical Exam Physical Exam: General: Resting comfortably HEENT: NC/AT; PERRLA with EOMI; [place] conjunctiva, MMM. No erythema of posterior pharynx Neck: Supple and nontender Cardiac: RRR Lungs: CTA bilaterally Abdomen: Bowel hypoactive x4; Nontender to palpation Extremities: Warm. No edema present Neuro: No focal weakness Skin: No rash Results & Data Vital Signs (Past 12 Hours) Vital Signs Temp Pulse Resp BP Pulse Ox 07/27/19 07:41 36.8 C 89 17 157/77 H 95 Laboratory Results 07/27/19 07/27/19 07/27/19 Range/Units 09:20 08:29 05:09 WBC 8.96 (4.8-10.8) K/uL RBC 3.44 L (4.2-5.4) M/uL Hgb 11.8 L (12.0-16.0) g/dL Hct 34.4 L (37-47) % MCV 100.0 (80-100) fL MCH 34.3 H (25-34) pg MCHC 34.3 (32-36) g/dL RDW Std Deviation 42.3 (36.4-46.3) fL RDW Coeff of Chelle 11.8 (11.5-14.5) % Plt Count 178 (130-400) K/uL MPV 9.3 (7.4-10.4) fL Sodium 142 (136-145) mmol/L Potassium 3.9 (3.5-5.1) mmol/L Chloride 104 (98-107) mmol/L Carbon Dioxide 34 H (21-32) mmol/L Anion Gap 4.0 (3-11) BUN 5 L (7-18) mg/dl Creatinine 0.64 (0.6-1.2) mg/dl Est Cr Clr Drug Dosing 97.4 ml/min Est GFR ( Amer) 118.1 Est GFR (Non-Af Amer) 101.9 BUN/Creatinine Ratio 8.4 L (10-20) Glucose 122 H (70-99) mg/dl POC Glucose 148 H (70-99) Estimat Average Glucose mg/dl Hemoglobin A1c (4.5-5.6) % Calcium 8.6 (8.5-10.1) mg/dl Phosphorus 2.5 (2.5-4.9) mg/dl Magnesium 1.8 (1.8-2.4) mg/dl Total Bilirubin 0.6 (0.2-1) mg/dl AST 22 (15-37) U/L ALT 25 (12-78) U/L Alkaline Phosphatase 72 (45-117) U/L Total Protein 6.7 (6.4-8.2) gm/dl Albumin 3.3 L (3.4-5.0) gm/dl Globulin 3.4 (2.5-4.0) gm/dl Albumin/Globulin Ratio 1.0 (0.9-2) 07/26/19 Range/Units 05:49 WBC (4.8-10.8) K/uL RBC (4.2-5.4) M/uL Hgb (12.0-16.0) g/dL Hct (37-47) % MCV (80-100) fL MCH (25-34) pg MCHC (32-36) g/dL RDW Std Deviation (36.4-46.3) fL RDW Coeff of Chelle (11.5-14.5) % Plt Count (130-400) K/uL MPV (7.4-10.4) fL Sodium (136-145) mmol/L Potassium (3.5-5.1) mmol/L Chloride (98-107) mmol/L Carbon Dioxide (21-32) mmol/L Anion Gap (3-11) BUN (7-18) mg/dl Creatinine (0.6-1.2) mg/dl Est Cr Clr Drug Dosing ml/min Est GFR ( Amer) Est GFR (Non-Af Amer) BUN/Creatinine Ratio (10-20) Glucose (70-99) mg/dl POC Glucose (70-99) Estimat Average Glucose 105 mg/dl Hemoglobin A1c 5.3 (4.5-5.6) % Calcium (8.5-10.1) mg/dl Phosphorus (2.5-4.9) mg/dl Magnesium (1.8-2.4) mg/dl Total Bilirubin (0.2-1) mg/dl AST (15-37) U/L ALT (12-78) U/L Alkaline Phosphatase (45-117) U/L Total Protein (6.4-8.2) gm/dl Albumin (3.4-5.0) gm/dl Globulin (2.5-4.0) gm/dl Albumin/Globulin Ratio (0.9-2) PG Care Time/CCT Total # of Minutes Spent Total Time Spent with Patient: Total time spent is greater than 50% in coordination of care (as documented) at patient's floor/unit and/or counseling patient:
[2019-07-27] MEDS: IPRATROPIUM BROMIDE/ALBUTEROL respimat INH INH PRN (17:50)
[2019-07-27] MEDS: HYDROmorphone INJ 0.5 MG/0.5 ML SYR IV PRN (17:57)
[2019-07-27] MEDS: TRAZODONE HCL 50 MG TAB PO SCH (21:00)
[2019-07-27] MEDS: risperiDONE 2 MG TABLET PO SCH (21:01)
[2019-07-28] MEDS: D5NSS + 20MEQ KCL 20 MEQ/1,000 ML BAG IV SCH ×3 (01:01→21:00)
[2019-07-28] MEDS: ONDANSETRON INJ 2 MG/ML 2 ML VIAL IV PRN ×3 (03:00→19:56)
[2019-07-28] MEDS: PROMETHAZINE HCL 25 MG in SODIUM CHLORIDE 0.9% 50 ML IV PRN (05:46)
[2019-07-28] MEDS: IPRATROPIUM BROMIDE/ALBUTEROL respimat INH INH PRN ×2 (05:46→17:12)
[2019-07-28] MEDS: CEFAZOLIN 1000MG 1,000 MG/7.5 ML SYR IV SCH ×3 (05:46→23:48)
[2019-07-28] MEDS ORDERED: HydrALAZINE HCL 20 MG/ML VIAL IV PRN (08:14)
[2019-07-28] MEDS ORDERED: IOVERSOL 100ml IV PRN (08:28)
--- NOTE | 2019-07-28 08:48 | CT Scan Report ---
CT abd pelvis oral and IV con CLINICAL HISTORY: 54 years-old Female presenting with ileus. TECHNIQUE: Multidetector CT of the abdomen and pelvis was performed after the administration of oral and intravenous contrast. IV contrast: 94 mL of Optiray 320. One or more dose lowering techniques wer e used consistent with the principles of ALARA (as low as reasonably achievable), including automatic exposure control, mA or kV adjustment to individual patient size, and/or use of iterative reconstruc tion. COMPARISON: 07/25/2019. CT DOSE (mGy.cm): The estimated cumulative dose is 705.57 mGycm. FINDINGS: [employer] topogram: Elevation of the right hemidiaphragm. Lung bases: Normal heart size. Trace right pleural thickening. No significant pleural effusion. Emphy sema. Subpleural reticulation at the right lung base. A suture margin is noted at the medial basal ri ght lower lobe. 9 mm solid peripheral nodule in the right lower lobe as on prior exam (series 3 image 9). This has been present since at least 2014. Liver: Normal morphology. No liver lesion. Patent hepatic vasculature. Biliary: No intrahepatic or extrahepatic biliary ductal dilatation. Normal gallbladder. Pancreas: Normal. Spleen: Normal. Adrenal glands: Normal. Kidneys and ureters: Several cysts noted. Otherwise normal parenchyma. No nephrolithiasis or hydronep hrosis. Subtle urothelial thickening is suggested. Ureters nondistended. Bladder: The configuration of the bladder suggests pelvic ligamentous laxity. Bladder otherwise verona l. Pelvic organs: Uterus surgically absent. Normal left ovary. Right ovary not visualized. Bowel: Oral contrast has transited to the sigmoid colon. No bowel obstruction. The appendix is normal . Nasogastric tube terminates in the gastric body. Possible circumferential thickening of the distal esophagus versus a small hiatal hernia. Peritoneal cavity: No free fluid or intraperitoneal gas. Lymph nodes: No enlarged lymph nodes in the abdomen or pelvis. Vasculature: Atherosclerosis of the normal caliber abdominal aorta. IVC patent. Abdominal wall: Bilateral breast implants again noted. The previous collection containing gas and flu id in the anterior abdominal wall now has a larger fluid component. This collection measures up to 10 .7 x 2.3 cm in maximal axial dimension, previously 7.7 x 1.4 cm. This does not appear to be in gross continuity with the peritoneal cavity. Laminar hyperdensity along the inferior margin may suggest ass ociated hernia repair. Overlying skin thickening in the infra umbilical region. Musculoskeletal: Normal. IMPRESSION: 1. Increased size of the gas and fluid containing collection in the subcutaneous tissue of the ventr al abdominal wall. Sterility cannot be confirmed. 2. No bowel obstruction or acute intra-abdominal pathology. No convincing evidence of ileus. 3. Appropriately positioned nasogastric tube. 4. Possible circumferential thickening of the distal esophagus versus a small hiatal hernia. 5. Emphysema. 6. Postsurgical and chronic changes of the right lung base. Electronically signed by: Larry Lisa M.D. 07/28/2019 8:46 AM
--- NOTE | 2019-07-28 09:03 | Surgery Progress Note ---
Date of Service July 28, 2019 Assessment & Plan (1) Ileus, postoperative: NGT output 630cc over 24 hours, but is taking in some sips Underwent CT scan this AM- will follow up results Continue NGT care for now Encourage ongoing ambulation Appreciate medicine team following along Dr Jo- CT shows good transit of contrast- d/c NG and start clears also has fluid/gas in seroma and soft tissue ecchymosis- same amt gas as postop no erythema or induration- will monitor for changes cont atbx, adv diet slowly Subjective Patient lying in bed after returning from CT scan this AM. Has been out of bed ambulating frequently yesterday. Is passing flatus, but no bowel movements. She is tolerating intermittent clamping of her NGT. Physical Exam Physical Exam: awake/alert Constitutional: well developed and well nourished; no acute distress Gastrointestinal (Abdomen): Inspection/Auscultation: + abdomen distended (mild) and + abdominal surgical incision (c/d/i with remberto-incisional ecchymosis) Percussion/Palpation: + abdomen tender (remberto-incisionally) Results & Data Vital Signs (Past 12 Hours) Vital Signs Temp Pulse Pulse Resp BP Pulse Ox 07/28/19 07:55 37.1 C 76 18 162/78 H 96 07/27/19 22:55 36.8 C 94 H 18 165/81 H 97 PG Care Time/CCT Total # of Minutes Spent Total Time Spent with Patient: Total time spent is greater than 50% in coordination of care (as documented) at patient's floor/unit and/or counseling patient:
[2019-07-28] MEDS: FLUTICASONE/SALMETEROL 100/50 (ADVAIR) 14 PUFF/1 INHALER INH SCH ×2 (09:11→21:00)
[2019-07-28] MEDS: ATORVASTATIN 20 MG TAB PO SCH (09:11)
[2019-07-28] MEDS: guaiFENesin 600 MG TABCR PO SCH ×2 (09:11→20:59)
[2019-07-28] MEDS: lamoTRIgine 100 MG TAB PO SCH (09:12)
[2019-07-28] MEDS: SERTRALINE HCL 100 MG TABLET PO SCH (09:12)
[2019-07-28] MEDS: PANTOprazole 40 MG TAB PO SCH (09:12)
[2019-07-28] MEDS: HEPARIN SOD 5,000 UNIT/0.5 ML VIAL SQ SCH ×2 (09:13→21:02)
[2019-07-28] MEDS ORDERED: NURSING DECISION MEDICATION ONE (09:43)
[2019-07-28] MEDS ORDERED: CHLORASEPTIC 1.4% SOLN 180 ML BTL MT PRN (09:54)
[2019-07-28] MEDS: HYDROmorphone INJ 1 MG/ML SYRINGE IV PRN ×2 (12:15→23:48)
--- NOTE | 2019-07-28 13:05 | Hospitalist Progress Note ---
Date of Service July 28, 2019 Assessment & Plan (1) Recurrent ventral hernia: - S/p repair on 07/23/19; primary management per surgery team. - CT A/P this morning showed increased size of gas and fluid containing collection in subQ tissue of ventral abd wall - management per surgery. - Continue Cefazolin for empiric coverage post op. (2) Ileus, postoperative: - CT A/P this morning was negative for ileus. Pt. had two BMs this morning. - Management per primary team - NG tube care. - Advance to clear liquid diet; IV fluids at 100 cc/hr. (3) HTN, goal below 140/90: - Continue Hydralazine prn. Not on anti-hypertensive at home. - BP has been elevated, 160-170's (4) Anxiety: - H/o depression,anxiety and bipolar affective disorder. - Continue Sertraline, Trazodone, Risperdal, Lamictal as prescribed. (5) Mixed hyperlipidemia: - Lipid panel showed elevated triglycerides and cholesterol. - Continue statin as prescribed. (6) GERD without esophagitis: - PPI. (7) COPD (chronic obstructive pulmonary disease): - Chronically uses 2L qhs at home; has been requiring 2L throughout the day inpatient. - Continue Mucinex, Flonase, Advair. (8) Chronic respiratory failure: -continue O2 qhs (9) DVT prophylaxis: - Heparin q12hr. Dispo: Will continue to follow, please call with any questions. Supervising Physician Co-Signing Physician Notes PA Supervision Note: I did not personally see or examine the patient today, but I verified all beltre points of GOLD Padron's assessment and plan with the following exceptions/additions: None Subjective Pt. had two small BMs today -- also passing gas. Still has mild nausea, NG tube in place. CT A/P negative for ileus this AM. Review of Systems Review of Systems: All systems reviewed & are unremarkable except as noted in HPI & below Constitutional: no fever, no chills, no fatigue and no weakness Respiratory: no cough, no dyspnea and no dyspnea on exertion Cardiovascular: no chest pain, no palpitations and no edema Gastrointestinal: + nausea; no abdominal pain, no vomiting and no constipation Genitourinary: no difficulty urinating Musculoskeletal: no back pain and no joint pain Integumentary: no non-healing lesions Physical Exam Physical Exam: General: Resting comfortably HEENT: NC/AT; PERRLA with EOMI; [place] conjunctiva, MMM. No erythema of posterior pharynx Neck: Supple and nontender Cardiac: RRR Lungs: CTA bilaterally Abdomen: Bowel normoactive x4; Nontender to palpation Extremities: Warm. No edema present Neuro: No focal weakness Skin: No rash Results & Data Vital Signs (Past 12 Hours) Vital Signs Temp Pulse Resp BP Pulse Ox 07/28/19 07:55 37.1 C 76 18 162/78 H 96 PG Care Time/CCT Total # of Minutes Spent Total Time Spent with Patient: Total time spent is greater than 50% in coordination of care (as documented) at patient's floor/unit and/or counseling patient:
[2019-07-28] MEDS: HYDROmorphone INJ 0.5 MG/0.5 ML SYR IV PRN ×2 (15:27→19:56)
[2019-07-28] MEDS: TRAZODONE HCL 50 MG TAB PO SCH (20:59)
[2019-07-28] MEDS: risperiDONE 2 MG TABLET PO SCH (20:59)
[2019-07-29 05:53] LABS: Hematocrit (blood only) 30.6 % (37-47); Hemoglobin 10.4 g/dL (12.0-16.0); Mean Corpuscular Volume 100.7 fL (80-100); Mean Platelet Volume 9.8 fL (7.4-10.4); Platelet Count 148 K/uL (130-400); RDW Standard Deviation 43.9 fL (36.4-46.3); Red Blood Count 3.04 M/uL (4.2-5.4); White Blood Count 5.07 K/uL (4.8-10.8)
[2019-07-29] MEDS: D5NSS + 20MEQ KCL 20 MEQ/1,000 ML BAG IV SCH ×2 (06:18→17:32)
[2019-07-29] MEDS: CEFAZOLIN 1000MG 1,000 MG/7.5 ML SYR IV SCH ×3 (06:18→21:56)
[2019-07-29] MEDS: HYDROmorphone INJ 0.5 MG/0.5 ML SYR IV PRN ×3 (06:23→13:46)
[2019-07-29 06:38] LABS: BUN Creatinine Ratio 10.4 (10-20); Calcium 8.5 mg/dl (8.5-10.1); Creatinine Clr Calc Pharmacy 97.4 ml/min; Est GFR (African American) 118.1; Est GFR (Non-African American) 101.9; Potassium 3.9 mmol/L (3.5-5.1)
[2019-07-29] MEDS: lamoTRIgine 100 MG TAB PO SCH (08:18)
[2019-07-29] MEDS: FLUTICASONE/SALMETEROL 100/50 (ADVAIR) 14 PUFF/1 INHALER INH SCH ×2 (08:18→20:34)
[2019-07-29] MEDS: PANTOprazole 40 MG TAB PO SCH (08:19)
[2019-07-29] MEDS: SERTRALINE HCL 100 MG TABLET PO SCH (08:19)
[2019-07-29] MEDS: guaiFENesin 600 MG TABCR PO SCH ×2 (08:19→20:33)
[2019-07-29] MEDS: ATORVASTATIN 20 MG TAB PO SCH (08:19)
[2019-07-29] MEDS: HEPARIN SOD 5,000 UNIT/0.5 ML VIAL SQ SCH ×2 (08:19→20:34)
--- NOTE | 2019-07-29 08:53 | Surgery Progress Note ---
Date of Service July 29, 2019 Assessment & Plan (1) Ileus, postoperative: Improving can have full liquids wound remains benign Dr Jo- will adv to low fiber diet Subjective multiple loose BMs, no nausea, tolerating clears Physical Exam Gastrointestinal (Abdomen): Inspection/Auscultation: + abdomen distended (minjmal) Percussion/Palpation: abdomen soft; abdomen nontender Results & Data Vital Signs (Past 12 Hours) Vital Signs Temp Pulse Pulse Resp BP Pulse Ox 07/29/19 07:37 36.9 C 75 13 126/76 96 07/29/19 00:09 36.9 C 79 18 122/73 96 PG Care Time/CCT Total # of Minutes Spent Total Time Spent with Patient: Total time spent is greater than 50% in coordination of care (as documented) at patient's floor/unit and/or counseling patient:
[2019-07-29] MEDS: IPRATROPIUM BROMIDE/ALBUTEROL respimat INH INH PRN ×2 (11:37→16:39)
--- NOTE | 2019-07-29 14:37 | Hospitalist Progress Note ---
Date of Service July 29, 2019 Assessment & Plan (1) Recurrent ventral hernia: - S/p repair on 07/23/19; primary management per surgery team. - CT A/P on 07/28 showed increased size of gas and fluid containing collection in subQ tissue of ventral abd wall - management per surgery. - Continue Cefazolin post op. (2) Ileus, postoperative: - CT A/P on 07/28 was negative for ileus. Is having regular BMs. - Management per primary team - NG tube removed on 07/28. - Advance to full liquid diet; IV fluids at 50 cc/hr. (3) HTN, goal below 140/90: - Continue Hydralazine prn. Not on anti-hypertensive at home. - BP is now improved. (4) Anxiety: - H/o depression,anxiety and bipolar affective disorder. - Continue Sertraline, Trazodone, Risperdal, Lamictal as prescribed. (5) Mixed hyperlipidemia: - Lipid panel showed elevated triglycerides and cholesterol. - Continue statin as prescribed. (6) GERD without esophagitis: - PPI. (7) COPD (chronic obstructive pulmonary disease): - Chronically uses 2L qhs at home. - Continue Mucinex, Flonase, Advair. (8) Chronic respiratory failure: - Continue 2L O2 qhs. (9) DVT prophylaxis: - Heparin q12hr. Dispo: Will sign off, please call with any questions. Supervising Physician Co-Signing Physician Notes PA Supervision Note: I did not personally see or examine the patient today, but I verified all beltre points of GOLD Padron's assessment and plan with the following exceptions/additions: None Subjective Pt. is passing gas, having regular BMs. Sitting up in bed, tolerating full liquid diet. Review of Systems Review of Systems: All systems reviewed & are unremarkable except as noted in HPI & below Constitutional: no fever, no chills, no fatigue and no weakness Respiratory: no cough, no dyspnea and no dyspnea on exertion Cardiovascular: no chest pain, no palpitations and no edema Gastrointestinal: no abdominal pain, no nausea and no constipation Genitourinary: no difficulty urinating Musculoskeletal: no back pain and no joint pain Physical Exam Physical Exam: General: Resting comfortably HEENT: NC/AT; PERRLA with EOMI; [place] conjunctiva, MMM. No erythema of posterior pharynx Neck: Supple and nontender Cardiac: RRR Lungs: CTA bilaterally Abdomen: Bowel normoactive x4; Nontender to palpation Extremities: Warm. No edema present Neuro: No focal weakness Skin: No rash Results & Data Vital Signs (Past 12 Hours) Vital Signs Temp Pulse Resp BP Pulse Ox 07/29/19 07:37 36.9 C 75 13 126/76 96 Laboratory Results 07/29/19 07/29/19 Range/Units 04:58 04:58 WBC 5.07 (4.8-10.8) K/uL RBC 3.04 L (4.2-5.4) M/uL Hgb 10.4 L (12.0-16.0) g/dL Hct 30.6 L (37-47) % MCV 100.7 H (80-100) fL MCH 34.2 H (25-34) pg MCHC 34.0 (32-36) g/dL RDW Std Deviation 43.9 (36.4-46.3) fL RDW Coeff of [place]le 12.0 (11.5-14.5) % Plt Count 148 (130-400) K/uL MPV 9.8 (7.4-10.4) fL Sodium 145 (136-145) mmol/L Potassium 3.9 (3.5-5.1) mmol/L Chloride 109 H (98-107) mmol/L Carbon Dioxide 30 (21-32) mmol/L Anion Gap 6.0 (3-11) BUN 7 (7-18) mg/dl Creatinine 0.64 (0.6-1.2) mg/dl Est Cr Clr Drug Dosing 97.4 ml/min Est GFR ( Amer) 118.1 Est GFR (Non-Af Amer) 101.9 BUN/Creatinine Ratio 10.4 (10-20) Glucose 103 H (70-99) mg/dl Calcium 8.5 (8.5-10.1) mg/dl PG Care Time/CCT Total # of Minutes Spent Total Time Spent with Patient: Total time spent is greater than 50% in coordination of care (as documented) at patient's floor/unit and/or counseling patient:
[2019-07-29] MEDS: HYDROmorphone INJ 1 MG/ML SYRINGE IV PRN ×2 (17:24→20:34)
[2019-07-29] MEDS: risperiDONE 2 MG TABLET PO SCH (20:34)
[2019-07-29] MEDS: TRAZODONE HCL 50 MG TAB PO SCH (20:34)
[2019-07-30] MEDS: HYDROmorphone INJ 1 MG/ML SYRINGE IV PRN (00:06)
[2019-07-30] MEDS: CEFAZOLIN 1000MG 1,000 MG/7.5 ML SYR IV SCH ×2 (06:06→06:47)
[2019-07-30] MEDS: HYDROmorphone INJ 0.5 MG/0.5 ML SYR IV PRN (06:06)
[2019-07-30] MEDS ORDERED: HYDROCODONE/ACETAMOPHEN 5/325MG TAB PO PRN ×2 (06:08)
[2019-07-30] MEDS: FLUTICASONE/SALMETEROL 100/50 (ADVAIR) 14 PUFF/1 INHALER INH SCH (07:36)
[2019-07-30] MEDS: PANTOprazole 40 MG TAB PO SCH (07:37)
[2019-07-30] MEDS: SERTRALINE HCL 100 MG TABLET PO SCH (07:37)
[2019-07-30] MEDS: guaiFENesin 600 MG TABCR PO SCH (07:37)
[2019-07-30] MEDS: ATORVASTATIN 20 MG TAB PO SCH (07:37)
[2019-07-30] MEDS: lamoTRIgine 100 MG TAB PO SCH (07:38)
[2019-07-30] MEDS: HEPARIN SOD 5,000 UNIT/0.5 ML VIAL SQ SCH (07:38)
[2019-07-30] MEDS ORDERED: DOCUSATE SODIUM/SENNA 50/8.6MG TAB PO SCH (09:00)
--- NOTE | 2019-07-31 11:50 | Discharge Summary ---
PRINCIPAL DIAGNOSIS: Ileus and seroma. HISTORY OF PRESENT ILLNESS: The patient is a 54-year-old female who underwent surgery on 07/23/2019 with hernia repair, presented in the Emergency Room with severe abdominal pain and what appears to be an ileus. HOSPITAL COURSE: The patient was admitted to the hospital and placed on bowel rest with nasogastric decompression. She did gradually improve, we did repeat the CT scan with contrast and she had good transit. She did have some fluid and gas in the subcutaneous space, some of which was present perioperatively and she had no signs of any infection, no erythema or induration. She was placed on antibiotics. She progressed well and was felt stable for discharge on 07/30/2019 to be followed in the surgical clinic.
== END 2019-07-30 09:37 | disposition home or self-care (01) | DRG 354 ==
LOC: ED 13:12 → 3N 15:06